=== PATIENT | female | born 1985 | race Caucasian/White ===

== ENCOUNTER 2022-11-04 13:47 | Emergency (ER) | payer OTHER ==
--- OUTSIDE RECORDS SUMMARY | 2022-11-04 13:52 | XMS REPORT | Continuity of Care Document ---
:[address] [facility] t Address [address] [place] [address] Care Team Providers Name Role Phone Paula ROBERT, Laura Adan Primary Care Physician LIEN KO Attending Clinician Unavailable Laura Luna MD Attending Clinician [phone] Yolanda Gant CGC Attending Clinician Unavailable Safia Nova MD Attending Clinician GOOD SKY Attending Clinician Unavailable Lin Collado MA Attending Clinician Unavailable Payers Payer Name Policy Policy Number Effective Expiration Source Type Date Date [facility] [place] OA/OAP [id number] 2019 2021 00:00:00 00:00:00 [facility] [id number] 2018 [facility] [place] 00:00:00 Hospital [id number] 2018-Pre sentHMO Problems Condition Condition Condition Status Onset Resolution Last Treating Co mments Source Name Details Category Date Date Treatment Clinician Date Class 3 Class 3 Disease Active 2020-04 Methodi severe severe 2-08 st obesity obesity 00:00: Hospita without without 00 l serious serious comorbidit comorbidit y with y with body mass body mass index index (BMI) of (BMI) of 45.0 to 45.0 to 49.9 in 49.9 in adult adult 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 Overview: Follow PCP MD Mitchell for hypothyro id. Will continue to monitor during . Allergies, Adverse Reactions, Alerts Allergy Allergy Status Severity Reaction(s) Onset Inactive Treating Comm ents Source Name Type Date Date Clinician Penicill Propensi Active [facility] ins ty to 08-10 Health adverse 00:00: reaction 00 s Amoxicil Propensi Active Method i marc ty to 08-09 st adverse 00:00: Hospita reaction 00 l s to drug Amoxicil Propensi Active Method i marc-Pot ty to 08-09 st Clavulan adverse 00:00: Hospita ate reaction 00 l s to drug Cefaclor Propensi Active Method i ty to 08-09 st adverse 00:00: Hospita reaction 00 l s to drug Codeine Propensi Active Methodi ty to 08-09 adverse 00:00: Hospita reaction 00 l s to drug Cefaclor Propensi Active Other UT ty to 819 reaction( Health adverse 00:00: s): Other reaction 00 (See s Comments) Jesse johnsons syndrome Codeine Propensi Active Other UT ty to 8-19 reaction( Health adverse 00:00: s): Other reaction 00 (See s Comments) , Other: See CommentsM akes pain increase; inherant on maternal family sidePain increases Family History Family Member Diagnosis Comments Start Date Stop Date Source Natural father Coronary artery [facility] Natural father Diabetes [facility] Maternal Cancer [facility] grandmother [facility] Natural mother Anxiety disorder Meth odist [facility] Natural mother [facility] disease [facility] Natural mother Hypothy[facility] Natural mother Miscarriages / [facility] Natural sister Miscarriages / [facility] Social History Social Habit Start Date Stop Date Quantity Comments Source Gender identity 2019-06-12 Identifies as [facility] 10:11:04 female gender Hospital (finding) Sexual orientation 2019-06-12 Heterosexual Meth odist 10:11:04 (finding) Hospital Alcohol intake 2022-09-27 2022-09-27 Current non-drinker M ethodist 00:00:00 00:00:00 of alcohol Hospital (finding) History of Social 2022-09-27 2022-09-[address] function 00:00:00 00:00:00 Hospital Exposure to 2022-08-04 2022-08-14 Not sure [facility] SARS-CoV-2 (event) 00:00:00 08:42:00 Tobacco use and 2022-03-08 2022-03-08 Smokeless tobacco Me thodist exposure 00:00:00 00:00:00 non-user Hospital Sex Assigned At [birth year] F [facility] 00:00:00 00:00:00 Smoking Status Start Date Stop Date Source Never smoked tobacco [facility] Medications Ordered Filled Start Stop Current Ordering Indication Dosage Frequency Signature Comments Components Source Medication Medication Date Date Medication? Clinician (SIG) Name Name cetirizine 2022- No 10mg QD Take 1 Meth selina (ZyrTEC) 10 09-27 tablet (10 s t MG tablet 11:53: 00:00 mg total) Ho spita 29 :00 by mouth l daily. levothyroxi Yes 100ug QD Take 1 Met hodi ne 09-[address] (SYNTHROID) 11:22: (100 mcg Ho spita 100 mcg 52 total) by l tablet mouth daily. semaglutide Yes .5mg Q1W Inject Meth selina (Ozempic) 09-[address] 0.25 mg or 11:22: (0.5 mg Hosp [facility] 0.5 mg (2 52 total) l mg/3 mL) under the pen skin every injector 7 days. subcutaneou s injection doxycycline 2022- No 100mg Q.5D Take 1 Me thodi (VIBRA-TABS 09-[address] ) 100 MG 00:00: 04:59 (100 mg Hospi ta tablet 00 :00 total) by l mouth 2 (two) times a day for 7 days. predniSONE 0 2022- No 20mg QD Take 1 Meth selina (DELTASONE) 09-2727 tablet (20 s t 20 mg 00:00: 04:59 mg total) Hospit a tablet 00 :00 by mouth l daily for 5 days. sertraline 2023-0 Yes TAKE 1 AND M ethodi (ZOLOFT) 6-19 1/2 st 100 MG 00:00: TABLETS Hospita tablet 00 DAILY BY l MOUTH Hubbard 0 Yes 30mg QD Take 1 Methodi Thyroid 30 5-30 tablet (30 st mg tablet 00:00: mg total) Hos rosaura 00 by mouth l daily. thyroid 2022-0 Yes 1mg QD Take 1 mg UT (Hubbard) 60 4-17 by mouth 1 He alth MG tablet 00:00: (one) time 00 each day. thyroid 2022-0 Yes 1mg QD Take 1 mg UT (Hubbard) 60 4-17 by mouth 1 He alth MG tablet 00:00: (one) time 00 each day. thyroid, 2021-04- No TAKE 1 Method i pork, 1-30 - TABLET BY st ([place] 00:00: 00:00 MOUTH Hospita Thyroid) 00 :00 EVERY DAY l 120 mg tablet sertraline 2022- No TAKE 1 AND Methodi (ZOLOFT) 4-25 06-27 04/2 st 100 MG 00:00: 00:00 TABLETS BY Hosp roger tablet 00 :00 MOUTH l DAILY thyroid, 2021- No TAKE 1 Method i pork, 3-25 11-[address] ([place] 00:00: 00:00 MOUTH Hospita Thyroid) 00 :00 EVERY DAY l 120 mg tablet buPROPion 2021- No TAKE 1 Metho di XL 3-11 11-[address] (WELLBUTRIN 00:00: 00:00 MOUTH Hosp roger XL) 150 MG 00 :00 EVERY DAY l 24 hr tablet methylPREDN Yes Follow UT ISolone 8 schedule Health (MEDROL, 00:00: on package MAVERICK,) 4 MG 00 instructio tablets ns diclofenac 0 Yes 75mg Q.5D Take 1 UT (Voltaren) 8-24 tablet (75 Hea lth 75 MG EC 00:00: mg total) tablet 00 by mouth 2 (two) times a day. Do not crush, chew, or split. methylPREDN 2022- No Follow UT ISolone 8-24 05-04 schedule Health (MEDROL, 00:00: 00:00 on package MAVERICK,) 4 MG 00 :00 instructio tablets ns diclofenac 2022- No 75mg Q.5D Take 1 UT (Voltaren) 11-30 05-04 tablet (75 He alth 75 MG EC 00:00: 00:00 mg total) tablet 00 :00 by mouth 2 (two) times a day. Do not crush, chew, or split. sertraline Yes TAKE 1 AND M ethodi (ZOLOFT) 10-27 1/2 st 100 MG 00:00: TABLETS Hospita tablet 00 DAILY BY l MOUTH sertraline 2020- No TAKE 1 AND Methodi (ZOLOFT) 10-04- 1/2 st 100 MG 00:00: 00:00 TABLETS Hospita tablet 00 :00 DAILY BY l MOUTH Hubbard Yes ALTERNATE Method i Thyroid 120 07-[address] mg tablet 00:00: (120MG) BY Ho spita 00 MOUTH l EVERY OTHER DAY WITH 1&1/2 TABLETS (180MG) EVERY OTHER DAY sertraline 2020- No TAKE 1 AND Methodi (ZOLOFT) 06-09 1/[address] 100 MG 00:00: 00:00 BY MOUTH Hospit a tablet 00 :00 EVERY DAY l sertraline 2020- No Take 1.5 Me thodi (ZOLOFT) 05-12- tabs po st 100 MG 00:00: 00:00 qday Hospita tablet 00 :00 l thyroid, 2019-04- No ALTERNATE Met maximilian pork, 07-[address] ([place] 00:00: 00:00 (120MG) BY Betty kaplan Thyroid) 00 :00 MOUTH l 120 mg EVERY tablet OTHER DAY WITH 1&1/2 TABLETS (180MG) EVERY OTHER DAY sertraline 2019-04- No 100mg QD Take 1 Met hodi (ZOLOFT) 05-[address] 100 MG 00:00: 00:00 (100 mg Hospita tablet 00 :00 total) by l mouth daily. sertraline 2019-04- No 100mg QD Take 1 Met hodi (ZOLOFT) 05-[address] 100 MG 00:00: 00:00 (100 mg Hospita tablet 00 :00 total) by l mouth daily. thyroid, 2019- No Alternated Me thodi pork, 11-[address] (ARMOUR 00:00: 00:00 every Hospita THYROID) 00 :00 other day l 120 mg with 1.5 tablet tabs every other day ergocalcife [place] [id number] Q7D Take 1 M ethodi rol 07-[address] (Vitamin 00:00: 04:59 (50,000 Hospi ta D2) 50,000 00 :00 Units l unit total) by capsule mouth once a week. sertraline 2018-04 No 100mg QD Take 1 Met hodi (ZOLOFT) 05-[address] 100 MG 00:00: 00:00 (100 mg Hospita tablet 00 :00 total) by l mouth daily. sertraline Yes TAKE 1 AND U T (Zoloft) 11-29 1/2 Health 100 MG 00:00: TABLETS tablet 00 DAILY BY MOUTH sertraline Yes TAKE 1 AND U T (Zoloft) 11-29 1/2 Health 100 MG 00:00: TABLETS tablet 00 DAILY BY MOUTH sertraline Yes TAKE 1 AND U T (Zoloft) 11-29 1/2 Health 100 MG 00:00: TABLETS tablet 00 DAILY BY MOUTH thyroid Yes ALTERNATE UT (Hubbard 09-29 1 TABLET Health Thyroid) 00:00: (120MG) BY 120 MG 00 MOUTH tablet EVERY OTHER DAY WITH 1&1/2 TABLETS (180MG) EVERY OTHER DAY thyroid No ALTERNATE UT (Hubbard 09-29 1 TABLET Health Thyroid) 00:00: 00:00 (120MG) BY 120 MG 00 :00 MOUTH tablet EVERY OTHER DAY WITH 1&1/2 TABLETS (180MG) EVERY OTHER DAY Immunizations Ordered Immunization Filled Immunization Date Status Commen ts Source Name Name SANGEETA QUAD PF 2020-03-[address] 00:00:00 Hospital Vital Signs Vital Name Observation Time Observation Value Comments Source Heart rate 2022-08-10 14:08:00 88 /min [facility] Body temperature 2022-08-10 14:08:00 36.22 Hanh [facility] Body height 2022-08-10 14:08:00 160 cm [facility] Body weight 2022-08-10 14:08:00 133.358 kg [facility] BMI 2022-08-10 14:08:00 52.08 kg/m2 [facility] Systolic blood 2022-08-10 14:08:00 108 mm[Hg] [facility] pressure Diastolic blood 2022-08-10 14:08:00 78 mm[Hg] [facility] pressure Body height 2020-11-30 19:31:00 160 cm [facility] Body weight 2020-11-30 19:31:00 127.007 kg [facility] BMI 2020-11-30 19:31:00 49.60 kg/m2 [facility] Body height 2020-11-30 19:31:00 160 cm [facility] Body weight 2020-11-30 19:31:00 127.007 kg [facility] BMI 2020-11-30 19:31:00 49.60 [facility] 2022-09-27 16:23:00 128 mm[Hg] [facility] pressure Diastolic blood 2022-09-27 16:23:00 76 mm[Hg] [facility] pressure Heart rate 2022-09-27 16:23:00 110 /min [facility] Respiratory rate 2022-09-27 16:23:00 16 /min [facility] Body height 2022-09-27 16:23:00 162.6 cm [facility] Body weight 2022-09-27 16:23:00 129.729 kg [facility] BMI 2022-09-27 16:23:00 49.09 kg/m2 [facility] Oxygen saturation in 2022-09-27 16:23:00 99 /min [facility] Arterial blood by Pulse oximetry Procedures Procedure Date / Time Performing Clinician Source Performed CBC WITH PLATELET AND 2022-05-03 16:08:00 Laura Luna [facility] DIFFERENTIAL [facility]aud[facility] COMPREHENSIVE METABOLIC 2022-05-03 16:08:00 Laura Luna [facility] HEMOGLOB[facility] A1C 2022-05-03 16:08:00 Cheryl [facility] LIPID PANEL 2022-05-03 16:08:00 [facility], [facility] T3, FREE 2022-05-03 16:08:00 [facility] T4, FREE 2022-05-03 16:08[facility] 2022-05-03 16:08:00 [facility], [facility] HORMONE [facility] XR FOOT 3+ VIEWS LEFT 2020-11-30 20:20:10 Lien Ko [place] He alth Plan of Care Planned Activity Planned Date Details Comments Source Future Scheduled 2022-09-27 COVID-19 VACCINE [facility] Test 11:48:53 (#1) [code = COVID-19 VACCINE (#1)] Future Scheduled 2022-09-27 [facility] Test 11:48:53 screening (procedure) [code = 240891864] Future Scheduled 2022-09-27 [facility] for [facility] Test 11:48:53 malignant neoplasm of cervix (procedure) [code = 652477674] Future Scheduled 2022-09-27 INFLUENZA VACCINE [facility] Test 11:48:53 [code = INFLUENZA VACCINE] Future Scheduled Screening for [facility] Test malignant neoplasm of cervix (procedure) [code = 167566379] Future Scheduled INFLUENZA VACCINE [facility] Test [code = INFLUENZA VACCINE] Future Scheduled COVID-19 VACCINE [facility] Test (1) [code = COVID-19 VACCINE (1)] Future Scheduled [facility] Test screening (procedure) [code = 857004757] Encounters Start End Encounter Admission Attending Care Care Encounter Source Date/Time Date/Time Type Type Clinicians Facility Department ID 2022-08-17 Outpatient [facility] [id number] [place] 07:50:29 [id number] [facility] 2022-08-15 Outpatient [facility] [id number] [place] 10:11:33 [id number] [facility] 2022-08-10 Outpatient [facility] [id number] [place] 09:02:22 [id number] [facility] 2022-08-09 Outpatient [facility] [id number] UT 07:52:35 [id number] [facility] 2022-08-08 Outpatient [facility] [id number] [place] 13:03:44 [id number] [facility] 2022-06-19 Outpatient [facility] [id number] [place] 13:22:43 [id number] [facility] 2020-11-30 Outpatient MAIKEL, [facility] [id number] [place] 15:09:23 LIEN [facility] 2020-11-30 Outpatient [facility] [id number] [place] 14:35:27 [facility] 2022-09-27 2022-09-27 Office Radhaf, 1.2.840.1 [id number] Methodi 11:15:00 11:55:37 Visit Laura 16949.1.[address] [facility] 3.430.2.7 Hospit a .3.762669 l .8 2022-09-27 2022-09-27 Outpatient [facility] [id number] [place] 00:00:00 00:00:[address] 2022-09-25 2022-09-25 Refill Radhaf, 1.2.840.1 [id number] [facility] 00:00:00 00:00:[address] [facility] 3.430.2.7 Hospit a .3.165276 l .8 2022-08-21 2022-08-21 Education L[place]ON Gant [facility] 1.2.840.114 [id number] [place] 09:00:00 09:06:07 [facility] 350.1.13.58 Health [place] [address] 9.2.7.2.686 [id number] 5 2022-08-10 2022-08-10 Office L[place] Nova [id number] [place] 09:00:00 10:23:48 Visit Safia MIGUE 350.1.13.58 H [facility] 9.2.7.2.686 [facility] [id number] 2022-06-29 2022-06-29 Telephone Radhaf, 1.2.840.1 [id number] Methodi 00:00:00 00:00:[address] [facility] 3.430.2.7 Hospit a .3.668322 l .8 2022-05-08 2022-05-08 Office Derzapf, 1.2.840.1 [id number] Methodi 14:45:00 15:07:55 Visit Laura 93740.1.[address] [facility] 3.430.2.7 Hospit a .3.338506 l .8 2022-05-08 2022-05-08 Travel 1.2.840.1 1.2.945.479 [id number] [facility]i 00:00:00 00:00:[address] 3.430.2.7 0.2.7.3.698 Ho spita .3.943610 084.8 l .8 2022-05-08 2022-05-08 Outpatient [facility] [id number] [address] [place] [address] 00:00:00 00:00:[address] 2022-03-08 2022-03-08 Office Derzapf, 1.2.840.1 [id number] Method[facility] 16:15:00 16:30:00 Visit Laura 34546.1.[address] [facility] 3.430.2.7 Hospit a .3.024645 l .8 2022-03-08 2022-03-08 Travel 1.2.840.1 1.2.250.833 [id number] Methodi 00:00:00 00:00:[address] 3.430.2.7 0.2.7.3.698 Ho spita .3.753473 084.8 l .8 2022-03-08 2022-03-08 Outpatient [facility] [id number] [place] 00:00:00 00:00:[address] 2022-03-07 2022-03-07 Refill Derzapf, 1.2.840.1 [id number] Methodi 00:00:00 00:00:[address] [facility] 3.430.2.7 Hospit a .3.961122 l .8 2021-04-20 2021-04-20 Outpatient SKY, [facility] [id number] [place] 00:00:00 00:00:[address] 2021-03-16 2021-03-16 Outpatient [facility] [id number] [place] 00:00:00 00:00:[address] 2020-12-20 2020-12-20 Outpatient [facility] [id number] [place] 00:00:00 00:00:[address] 2020-11-30 2020-11-30 Office Maikel, [facility] 1.2.840.114 [id number] 14:23:50 15:06:52 Visit Lien SUGAR 350.1.13.58 [place] 9.2.7.2.686 [id number] 1 2020-11-30 2020-11-30 Office Maikel, [facility] 1.2.840.114 [id number] [place] 14:23:50 15:06:52 Visit Lien SUGAR 350.1.13.58 He alth [place] 9.2.7.2.686 [id number] 1 2020-11-02 2020-11-02 Refill Paula, 1.2.840.1 [id number] Methodi 00:00:00 00:00:[address] 3.430.2.7 Hospit a .3.676473 l .8 2020-10-27 2020-10-27 Refill Paula, 1.2.840.1 [id number] [facility] 00:00:00 00:00:[address]an [address] 3.430.2.7 Hospit a .3.696044 l .8 2020-10-04 2020-10-04 Refill Paula, 1.2.840.1 [id number] [facility]i 00:00:00 00:00:00 Laura Adan 24629.1.[address] 3.430.2.7 Hospit a .3.773835 l .8 2020-07-01 2020-07-01 Refill Paula, 1.2.840.1 [id number] Methodi 00:00:00 00:00:00 Laura Loco 97734.1.[address] 3.430.2.7 Hospit a .3.439150 l .8 2020-06-30 2020-06-30 Telemedici Paula, 1.2.840.1 [id number] Methodi 10:44:31 11:20:43 ne Laura Loco 62741.1.[address] 3.430.2.7 Hospit a .3.297979 l .8 2020-06-18 2020-06-18 Telemedici Paula, 1.2.840.1 [id number] Methodi 09:06:04 09:49:11 ne Laura Loco 22095.1.[address] 3.430.2.7 Hospit a .3.458905 l .8 2020-06-09 2020-06-09 Refill Paula, 1.2.840.1 [id number] Methodi 00:00:00 00:00:00 Laura Loco [address]60.1.[address] 3.430.2.7 Hospit a .3.830125 l .8 2020-05-12 2020-05-12 Telemedici Paula, 1.2.840.1 [id number] Methodi 17:34:37 17:51:06 ne Laura Loco 24948.1.[address] 3.430.2.7 Hospit a .3.861030 l .8 2020-04-05 2020-04-05 Refill Paula, 1.2.840.1 [id number] [facility] 00:00:00 00:00:[address] Loco [address].1.[address] 3.430.2.7 Hospit a .3.044572 l .8 2020-03-11 2020-03-11 Telephone Collado, 1.2.840.1 [id number] Methodi 00:00:00 00:00:[address] 3.430.2.7 Hospit a .3.977069 l .8 2020-03-07 2020-03-07 Orders Paula, 1.2.840.1 [id number] Methodi 00:00:00 00:00:00 Only Laura Adan 74030.1.[address] 3.430.2.7 Hospit a .3.229500 l .8 Results Test Description Test Time Test Comments Results Result Comments Source Comprehensive metabolic panel 2022-05-04 12:10:00 Test Item Value Reference Range Interpretation Comme nts Glucose (test code = 97 mg/dL 70-99 2345-7) BUN (test code = 3094-0) 14 mg/dL 6-20 Creatinine (test code = 0.80 mg/dL 0.57-1.00 0-0) eGFR (test code = 99 mL/min/1.73 >=59 01267-8) BUN/creatinine ratio 18 9-23 (test code = 3097-3) Sodium (test code = 138 mmol/L 278-992 4894-2) Potassium (test code = 4.3 mmol/L 3.5-5.2 2823-3) Chloride (test code = 102 mmol/L 96-106 5-0) CO2 (test code = 2027-) 24 mmol/L 20-29 Calcium (test code = 9.5 mg/dL 8.7-10.2 31798-0) Protein (test code = 6.9 g/dL 6.0-8.5 2885-2) Albumin, S (test code = 4.4 g/dL 3.8-4.8 1751-7) Globulin, total (test 2.5 g/dL 1.5-4.5 code = 69928-3) Albumin/globulin ratio 1.8 1.2-2.2 (test code = 1759-0) Total bilirubin (test 0.3 mg/dL 0.0-1.2 code = 1974-2) Alkaline phosphatase 120 See_Comment [Autom ated message] The (test code = 6768-6) system which generated this result tra nsmitted reference range : 44 - 121 IU/L. The r eference range was not u sed to interpret this result as normal/abnormal . AST (test code = 1920-8) 14 See_Comment [A utomated message] The system which ge nerated this result tra nsmitted reference range : 0 - 40 IU/L. The refer ence range was not u sed to interpret this result as normal/abnormal . ALT (test code = 1742-6) 12 See_Comment [A utomated message] The system which ge nerated this result tra nsmitted reference range : 0 - 32 IU/L. The refer ence range was not u sed to interpret this result as normal/abnormal . MELISSA (test code = MELISSA) Performed at: [facility] [id number] Director: Terry Moore MD, Phone: [phone] [facility] [id number] 12:10:00 Test Item Value Reference Range Interpretation Comments Cholesterol (test code = 199 mg/dL 861-592 6696-3) Triglycerides (test code 282 mg/dL 0-149 H = 2571-8) HDL cholesterol (test 34 mg/dL >=39 L code = 2085-9) VLDL cholesterol martha 49 mg/dL 5-40 H (test code = 50580-4) LDL Chol Calc (NIH) (test 116 mg/dL 0-99 H code = 62361-2) Non-HDL cholesterol (test 165 mg/dL 0-129 H code = 69649-7) MELISSA (test code = MELISSA) Performed at: [facility] [id number] Director: Terry Moore MD, Phone: [phone] Lab Interpretation (test Abnormal code = 69269-8) [facility] [id number] 12:10:00 Test Item Value Reference Range Interpretation Comments Hemoglobin A1C (test 6.2 % 4.8-5.6 H Predia betes: code = 4548-4) 5.7 - 6.4 Diabetes: >6.4 Glycemic control for adults with diabetes: <7.0 MELISSA (test code = MELISSA) Performed at: [facility] [address] [id number] Director: Terry Moore MD, Phone: [phone] Lab Interpretation Abnormal (test code = 52924-9) [facility], [id number] 12:10:00 Test Item Value Reference Range Interpretation Comments T4, free (test code 0.87 ng/dL 0.82-1.77 = 3024-7) MELISSA (test code = Performed at: - MELISSA) [facility] [id number] Director: Terry Moore MD, Phone: [phone] [facility] stimulating [id number] 12:10:00 Test Item Value Reference Range Interpretation Comments TSH (test code 2.000 See_Comment [Automated m essage] = 12541-7) The system ic h generated this result transmit marcus reference range : 0.450 - 4.500 uIU/mL. The reference range was not used to interpret this result as normal/abnormal . MELISSA (test code Performed at: - = MELISSA) [address] [id number] Director: Terry Moore MD, Phone: [phone] [place] [address], [id number] 12:10:00 Test Item Value Reference Range Interpretation Comments T3, free (test code = 4.6 pg/mL 2.0-4.4 H 3051-0) MELISSA (test code = MELISSA) Performed at: [address] [id number] Director: Terry Moore MD, Phone: [phone] Lab Interpretation (test Abnormal code = 54742-5) [facility] with platelet and [id number] 12:10:00 Test Item Value Reference Range Interpretation Comments WBC (test code = 8.6 See_Comment [Automated 2162-2) message] The system which generated this result transmit marcus reference range : 3.4 - 10.8 x10E3/uL. The reference range was not used to interpret this result as normal/abnormal . RBC (test code = 4.80 See_Comment [Automated 444-8) message] The system which generated this result transmit marcus reference range : 3.77 - 5.28 x10E6/uL. The reference range was not used to interpret this result as normal/abnormal . HGB (test code = 12.8 g/dL 11.1-15.9 718-7) HCT (test code = 39.4 % 34.0-46.6 4544-3) MCV (test code = 82 fL 79-97 787-2) MCH (test code = 26.7 pg 26.6-33.0 785-6) MCHC (test code = 32.5 g/dL 31.5-35.7 786-4) RDW (test code = 13.4 % 11.7-15.4 788-0) Platelet count 276 See_Comment [Automated (test code = 777-3) message] The system which generated this result transmit marcus reference range : 150 - 450 x10E3/uL. The reference range was not used to interpret this result as normal/abnormal . Neutrophils (test 57 % Not Estab. code = 770-8) Lymphocytes (test 34 % Not Estab. code = 736-9) Monocytes (test 6 % Not Estab. code = 5905-5) Eosinophils (test 3 % Not Estab. code = 713-8) Basophils (test 0 % Not Estab. code = 706-2) Neutrophils, 4.9 See_Comment [Automated absolute (test code message] The = 751-8) system which generated this result transmit marcus reference range : 1.4 - 7.0 x10E3/uL. The reference range was not used to interpret this result as normal/abnormal . Lymphocytes, 2.9 See_Comment [Automated absolute (test code message] The = 731-0) system which generated this result transmit marcus reference range : 0.7 - 3.1 x10E3/uL. The reference range was not used to interpret this result as normal/abnormal . Monocytes, absolute 0.5 See_Comment [Automa marcus (test code = 742-7) message] The system which generated this result transmit marcus reference range : 0.1 - 0.9 x10E3/uL. The reference range was not used to interpret this result as normal/abnormal . Eosinophils, 0.3 See_Comment [Automated absolute (test code message] The = 711-2) system which generated this result transmit marcus reference range : 0.0 - 0.4 x10E3/uL. The reference range was not used to interpret this result as normal/abnormal . Basophils, absolute 0.0 See_Comment [Automa marcus (test code = 704-7) message] The system which generated this result transmit marcus reference range : 0.0 - 0.2 x10E3/uL. The reference range was not used to interpret this result as normal/abnormal . Immature 0 % Not Estab. granulocytes (test code = 58118-6) Immature 0.0 See_Comment [Automated granulocytes, message] The absolute (test code system w [facility] = 57157-5) generated this result transmit marcus reference range : 0.0 - 0.1 x10E3/uL. The reference range was not used to interpret this result as normal/abnormal . MELISSA (test code = Performed at: 01 MELISSA) - [facility] [id number] [place], [place] [id number] Director: Terry Moore MD, Phone: [phone] [facility] views [id number] 20:43:24See [facility]
[2022-11-04] MEDS ORDERED: TDAP (DIPHTH,PERTUSS(ACELL),TET VAC) 0.5 ML VIAL IMVAC ONE (14:54)
[2022-11-04] MEDS ORDERED: IBUPROFEN 200 MG TAB PO ONE (14:54)
[2022-11-04] MEDS ORDERED: ACETAMINOPHEN 325 MG TABLET ONE (14:54)
--- NOTE | 2022-11-04 14:55 | RAD REPORT ---
EXAM DESCRIPTION: RAD - Foot Right 3 View - 11/04/2022 2:44 pm CLINICAL HISTORY: sting ray;Animal bite COMPARISON: No comparisons FINDINGS: No fracture, radiopaque foreign body or soft tissue gas. Small plantar calcaneal spur.
--- NOTE | 2022-11-04 15:25 | EDPHYS ---
Physician Documentation [facility] Name: Laurence Mccollum Age: 37 yrs Sex: Female : 1985 Arrival Date: 11/04/2022 Time: 13:47 Bed 12 Private MD: ED Physician Rakesh Brannon HPI: 11/04 14:05 This 37 yrs old Female presents to ER via Wheelchair with complaints of Stingray pain. aj3 14:05 Patient reports pain to right foot after getting stung by stingray prior to arrival. No aj3 other injuries reported and no other associated symptoms.. Historical: - Allergies: 14:03 PENICILLINS; ll1 14:03 Augmentin; ll1 14:03 Ceclor; ll1 14:03 Amoxicillin; ll1 14:03 Codeine; ll1 - PMHx: 14:03 Diabetes mellitus; borderline cholesterol; Depressive disorder; ll1 - PSHx: 14:03 Cholecystectomy; D\T\C; ll1 - Immunization history:: Client reports having NOT received the Covid vaccine. - Social history:: Smoking status: Patient denies any tobacco usage or history of. ROS: 14:05 Constitutional: Negative for fever, chills, and weight loss, Cardiovascular: Negative aj3 for chest pain, palpitations, and edema, Respiratory: Negative for shortness of breath, cough, wheezing, and pleuritic chest pain, Abdomen/GI: Negative for abdominal pain, nausea, vomiting, diarrhea, and constipation, Neuro: Negative for syncope, headache, weakness, numbness, tingling, and seizure. 14:05 MS/extremity: Positive for pain, Right foot pain. 14:05 Skin: Positive for puncture. Exam: 14:06 Constitutional: This is a well developed, well nourished patient who is awake, alert, aj3 and in no acute distress. Cardiovascular: Regular rate and rhythm with a normal S1 and S2. No gallops, murmurs, or rubs. Normal PMI, no JVD. No pulse deficits. Respiratory: Lungs have equal breath sounds bilaterally, clear to auscultation and percussion. No rales, rhonchi or wheezes noted. No increased work of breathing, no retractions or nasal flaring. Abdomen/GI: Soft, non-tender, with normal bowel sounds. No distension or tympany. No guarding or rebound. No evidence of tenderness throughout. Neuro: Awake and alert, GCS 15, oriented to person, place, time, and situation. Motor strength 5/5 in all extremities. Sensory grossly intact. Normal gait. 14:06 Musculoskeletal/extremity: Tenderness to right foot. 14:06 Skin: Puncture to plantar region of right foot. Vital Signs: 14:05 BP 127 / 102; Pulse 104; Resp 17; Temp 98; Pulse Ox 100% ; Weight 124.74 kg; Height 5 ll1 ft. 3 in. ; Pain 4/10; 14:05 Body Mass Index 48.71 (124.74 kg, 160.02 cm) ll1 14:05 Pain Scale: Adult ll1 MDM: 14:11 Patient medically screened. aj3 15:30 Differential diagnosis: Abrasion, cellulitis, puncture wound, foreign body. Data aj3 reviewed: vital signs, nurses notes, radiologic studies, plain films. Independent interpretation of the following test(s) in the Emergency Department X-Ray: My interpretation is No foreign body noted. Historians other than the Patient: Spouse/Significant Other: . Counseling: I had a detailed discussion with the patient and/or guardian regarding: the historical points, exam findings, and any diagnostic results supporting the discharge/admit diagnosis, radiology results, to return to the emergency department if symptoms worsen or persist or if there are any questions or concerns that arise at home. ED course: Patient presenting with foot pain after stingray sting. Patient's foot placed in hot water and, given Tdap and had negative x-ray. Patient discharged with antibiotics. Discharge instructions for supportive measures, follow-up and ER return precautions given.. 11/04 14:16 Order name: Foot Right 3 View XRAY; Complete Time: 15:24 aj3 Administered Medications: 14:41 Not Given (Other Intervention Used): Acetaminophen TN Suppository 650 mg TN once ss 14:55 Drug: Boostrix Tdap IM 0.5 ml {Note: E3594 24.} Route: IM; Site: right deltoid; ss 15:41 Follow up: Response: No adverse reaction ss 14:56 Drug: Ibuprofen PO 400 mg Route: PO; ss 15:40 Follow up: Response: No adverse reaction ss 14:56 Drug: Acetaminophen PO 650 mg Route: PO; ss 15:40 Follow up: Response: No adverse reaction ss Disposition: 11/05 13:36 Co-signature as Attending Physician, Rakesh Brannon DO I was immediately available on-site ms3 in the Emergency Department for consultation in the care of the patient. Disposition Summary: 11/04/22 15:25 Discharge Ordered Location: Home aj3 Problem: new aj3 Symptoms: have improved aj3 Condition: Stable aj3 Diagnosis - Toxic effect of contact with stingray, accidental (unintentional), initial encounteraj3 - Puncture wound without foreign body, right foot aj3 Followup: aj3 - With: Private Physician - When: - Reason: Recheck today's complaints, Re-evaluation by your physician Followup: aj3 - With: Emergency Department - When: - Reason: Worsening of condition Discharge Instructions: - Discharge Summary Sheet aj3 - [employer] Injury aj3 Forms: - Work release form aj3 - Medication Reconciliation Form aj3 - Thank You Letter aj3 - Antibiotic Education aj3 - Prescription Opioid Use aj3 - Patient Portal Instructions aj3 Prescriptions: - Cipro 500 mg Oral Tablet - take 1 tablet by ORAL route every 12 hours for 5 days; 10 tablet; Refills: 0, aj3 Product Selection Permitted Signatures: Dispatcher [employer] EDCecille Simmons RN RN ss Lewis, Lynsay, RN RN 1 Rakesh Brannon DO DO ms3 Katt Monk, LINSEED OIL REFINER LINSEED OIL REFINER aj3
--- NOTE | 2022-11-04 15:25 | ER ---
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 No active bleeding. Coronavirus screen: Vaccine status: Patient reports being unvaccinated. Client denies travel out of the [place] in the last 14 days. At this time, the client does not indicate any symptoms associated with coronavirus-19. Ebola Screen: Patient denies travel to an Ebola-affected area in the 21 days before illness onset. Initial Sepsis Screen: Does the patient meet any 2 criteria? No. Patient's initial sepsis screen is negative. Does the patient have a suspected source of infection? Yes: Skin breakdown/wound. Risk Assessment: Do you want to hurt yourself or someone else? Patient reports no desire to harm self or others. Onset of symptoms was November 04, 2022. 14:05 Method Of Arrival: Wheelchair ll1 14:05 Acuity: LACY 4 ll1 Triage Assessment: 14:07 General: Appears uncomfortable, Behavior is calm, cooperative, appropriate for age. ll1 Pain: Complains of pain in right foot Quality of pain is described as aching, throbbing. Derm: R foot puncture Reports pain. Musculoskeletal: Circulation, motion, and sensation intact. Capillary refill < 3 seconds. Historical: - Allergies: 14:03 PENICILLINS; ll1 14:03 Augmentin; ll1 14:03 Ceclor; ll1 14:03 Amoxicillin; ll1 14:03 Codeine; ll1 - PMHx: 14:03 Diabetes mellitus; borderline cholesterol; Depressive disorder; ll1 - PSHx: 14:03 Cholecystectomy; D\T\C; ll1 - Immunization history:: Client reports having NOT received the Covid vaccine. - Social history:: Smoking status: Patient denies any tobacco usage or history of. Screenin:38 [facility] ED Fall Risk Assessment (Adult) History of falling in the last 3 months, ss including since admission No falls in past 3 months (0 pts). Abuse screen: Denies threats or abuse. Denies injuries from another. Nutritional screening: No deficits noted. Tuberculosis screening: Never had TB. Assessment: 15:38 General: Appears in no apparent distress. comfortable, Behavior is calm, cooperative. ss Neuro: Level of Consciousness is awake, alert, obeys commands. Respiratory: Airway is patent Respiratory effort is even, unlabored, Respiratory pattern is regular, symmetrical. Derm: Skin is pink, warm \T\ dry. normal. Vital Signs: 14:05 BP 127 / 102; Pulse 104; Resp 17; Temp 98; Pulse Ox 100% ; Weight 124.74 kg; Height 5 ll1 ft. 3 in. ; Pain 4/10; 14:05 Body Mass Index 48.71 (124.74 kg, 160.02 cm) ll1 14:05 Pain Scale: Adult ll1 ED Course: 13:49 Patient arrived in ED. ts1 13:53 Katt Monk NP is PHCP. aj3 13:53 Rakesh Brannon DO is Attending Physician. aj3 14:07 Triage completed. ll1 14:07 Arm band placed on. ll1 14:31 Patient placed in an exam room, on a stretcher. ll1 14:45 Foot Right 3 View XRAY In Process Unspecified. EDMS 15:38 Patient has correct armband on for positive identification. ss 15:38 No provider procedures requiring assistance completed. Patient did not have IV access ss during this emergency room visit. Administered Medications: 14:41 Not Given (Other Intervention Used): Acetaminophen MS Suppository 650 mg MS once ss 14:55 Drug: Boostrix Tdap IM 0.5 ml {Note: [id number] 24.} Route: IM; Site: right deltoid; ss 15:41 Follow up: Response: No adverse reaction ss 14:56 Drug: Ibuprofen PO 400 mg Route: PO; ss 15:40 Follow up: Response: No adverse reaction ss 14:56 Drug: Acetaminophen PO 650 mg Route: PO; ss 15:40 Follow up: Response: No adverse reaction ss Medication: 15:38 VIS not applicable for this client. ss Outcome: 15:25 Discharge ordered by . aj3 15:38 Discharged to home ambulatory. ss 15:38 Condition: good 15:38 Discharge instructions given to patient, Instructed on discharge instructions, follow up and referral plans. medication usage, Demonstrated understanding of instructions, follow-up care, medications, Prescriptions given X 1. 15:40 Patient left the ED. Signatures: Dispatcher [employer] EDMS Cecille Draper RN RN ss Yoselyn Kaminski RN RN ll1 Katt Monk, RING CONDUCTOR RING CONDUCTOR [email or web address] Lala Calvo PAS PAS ts1
[2022-11-04 15:44] VITALS: BP 127/102; TEMP 98; O2SAT 100
== END 2022-11-04 15:40 | disposition home or self-care (01) ==
LOC: ER 13:47
DX: S91.331A Puncture wound without foreign body, right foot, initial encounter (principal); T63.511A Toxic effect of contact with stingray, accidental (unintentional), initial encounter; Z88.0 Allergy status to penicillin; Z88.1 Allergy status to other antibiotic agents; Z88.5 Allergy status to narcotic agent
CPT/HCPCS: 96372; 99284